=== PATIENT | female | born 1955 | race Caucasian/White ===

== ENCOUNTER → 2019-03-17 14:47 | Outpatient (CLI) | payer MEDICARE, OTHER, SELFPAY | PROVIDERS: PCP Registered Nurse; Visit Provider Registered Nurse | DX: M85.88 Other specified disorders of bone density and structure, other site (principal); Z78.0 Asymptomatic menopausal state; Z82.62 Family history of osteoporosis; Z87.891 Personal history of nicotine dependence | CPT/HCPCS: 77080 ==

== ENCOUNTER → 2019-06-15 17:25 | Outpatient (CLI) | payer MEDICARE, OTHER, SELFPAY ==
--- NOTE | 2019-06-15 | DI.MG.S_ITS ---
BILATERAL DIGITAL SCREENING MAMMOGRAM 3D/2D WITH CAD: 06/15/2019 CLINICAL: Routine screening. Family history of breast cancer. Comparison is made to exams dated: 12/31/2017 mammogram, 03/15/2015 mammogram, 03/08/2015 mammogram, and 07/19/2008 mammogram - [facility]. The tissue of both breasts is heterogeneously dense. This may lower the sensitivity of mammography. Current study was also evaluated with a Computer Aided Detection (CAD) system. No significant masses, calcifications, or other findings are seen in either breast. There has been no significant interval change. IMPRESSION: NEGATIVE There is no mammographic evidence of malignancy. A 1 year screening mammogram is recommended. This exam was interpreted at Station ID: [id number]. NOTE: For mammograms, a report in lay terms will be sent to the patient. Approximately 15% of breast malignancies will not be visualized mammographically. In the management of a palpable breast mass, a negative mammogram must not discourage biopsy of a clinically suspicious lesion. Electronically Signed By: Case real/ariadne:06/16/2019 08:14:34 letter sent: Normal Exam ACR BI-RADS Category 1: Negative [id number]
== END ==
PROVIDERS: PCP Registered Nurse; Visit Provider Registered Nurse
DX: Z12.31 Encounter for screening mammogram for malignant neoplasm of breast (principal); Z80.3 Family history of malignant neoplasm of breast
CPT/HCPCS: 77063; 77067

== ENCOUNTER → 2019-11-23 15:13 | Outpatient (CLI) | payer MEDICARE, OTHER, SELFPAY ==
--- NOTE | 2019-11-23 | DI.RAD.S_ITS ---
PROCEDURE: XR CHEST 2V INDICATIONS: COUGH, RULE OUT PNEUMONIA TECHNIQUE: 2 views of the chest were acquired. COMPARISON: [facility], , CHEST 2 VIEW, 07/14/2011, 14:54. FINDINGS: Surgical changes and devices: None. Lungs and pleura: There is an opacity density in the left mid lung zone. A nodular density seen in the posterior sulcus on the lateral projection. No pleural effusions or pneumothorax. Mediastinum: Mediastinal contours are normal. Heart size is normal. Bones and chest wall: No suspicious bony abnormalities. Soft tissues appear unremarkable. IMPRESSION: 1. An opacity in the left midlung zone, consistent with pneumonia. Recommend followup chest x-ray after adequate treatment to ensure resolution. 2. A small nodular density is noted in the lateral projection within the posterior sulcus. This can be followed on followup chest x-ray at as well. Dictated by: Valeria Nguyen M.D. on 11/23/2019 at 15:32 Approved by: Valeria Nguyen M.D. on 11/23/2019 at 15:39
== END ==
PROVIDERS: PCP Registered Nurse; Visit Provider Registered Nurse
DX: R05 Cough (principal)
CPT/HCPCS: 71046

== ENCOUNTER → 2019-12-01 12:13 | Outpatient (CLI) | payer MEDICARE, OTHER, SELFPAY ==
--- NOTE | 2019-12-01 | DI.RAD.S_ITS ---
PROCEDURE: XR CHEST 2V INDICATIONS: follow up related to recent pneumonia TECHNIQUE: 2 views of the chest were acquired. COMPARISON: [facility], , XR CHEST 2V, 11/23/2019, 15:12. FINDINGS: Surgical changes and devices: None. Lungs and pleura: Lungs are clear. No pleural effusions or pneumothorax. Mediastinum: Mediastinal contours are normal. Heart size is normal. Bones and chest wall: No suspicious bony abnormalities. Soft tissues appear unremarkable. IMPRESSION: No acute disease. Dictated by: Guanako Abdalla M.D. on 12/01/2019 at 14:45 Approved by: Guanako Abdalla M.D. on 12/01/2019 at 14:45
== END ==
PROVIDERS: PCP Registered Nurse; Visit Provider Registered Nurse
DX: J15.9 Unspecified bacterial pneumonia (principal)
CPT/HCPCS: 71046

== ENCOUNTER 2020-05-26 11:25 | Emergency (ER) | payer MEDICARE, OTHER, SELFPAY ==
[2020-05-26] VITALS (11 sets, daily range): BP systolic 145–167; BP diastolic 65–81; PULSE 43–52; RESP 0–29; TEMP 36.3–36.8; O2SAT 98–100; BMI 24.2
--- NOTE | 2020-05-26 11:46 | DI.RAD.S_ITS ---
PROCEDURE: XR CHEST 1V INDICATIONS: chest pain TECHNIQUE: One view of the chest was acquired. COMPARISON: [facility], , CHEST 2 VIEW, 07/14/2011, 14:54. [facility], , XR CHEST 2V, 11/23/2019, 15:12. [facility], CR, XR CHEST 2V, 12/01/2019, 12:13. FINDINGS: Surgical changes and devices: None. Lungs and pleura: An incomplete inspiratory result is noted, causing a crowded appearance to the lung markings. No focal infiltrates are seen. No pneumothorax or significant pleural effusions are seen. Mediastinum: The cardiac contours are within normal limits. The aorta demonstrates calcification and tortuosity. Bones and chest wall: No suspicious bony lesions. Age-appropriate bony degenerative changes are seen. Overlying soft tissues appear unremarkable. IMPRESSION: Limited portable chest examination, without a significant cardiopulmonary abnormality identified. Dictated by: Miguel Goss M.D. on 05/26/2020 at 11:09 Approved by: Miguel Goss M.D. on 05/26/2020 at 11:11
--- NOTE | 2020-05-26 11:57 | PC.NURSE ---
Patient reports heartburn pain for about three days. Took omeprazole and tums last night. Patient has noticed nausea and some dizziness associated with symptoms. Patient has had dizziness with standing intermittently. Patient had a headache this morning with pounding in her chest which is now resolved.
[2020-05-26 12:10] LABS: Add Manual Diff / Slide Review NO; Basophils Absolute Auto 100 /uL (0-100); Eosinophils Absolute Auto 200 /uL (0-450); Eosinophils Percent Auto 2.9 % (2-4); Hematocrit 41.5 % (36-46); Hemoglobin 13.8 g/dL (12.0-16.0); Lymphocytes Absolute Auto 2200 /uL (1100-4500); Mean Corpuscular HGB Conc 33.2 % (30-36); Mean Corpuscular Hemoglobin 30.6 PG (26-34); Mean Corpuscular Volume 92.4 fL (80-100); Monocytes Absolute Auto 800 /uL (0-900); Monocytes Percent Auto 9.8 % (3-14); Neutrophils Absolute Auto 4500 /uL (1500-7000); Neutrophils Percent Auto 58.3 % (50-75); Platelet Count 180 X10^3/uL (150-400); Red Blood Cell Count 4.49 X10^6/uL (4.0-5.2); Red Cell Distribution Width 13.6 % (11.6-14.8); White Blood Cell Count 7.7 X10^3/uL (4.5-11.0)
--- NOTE | 2020-05-26 12:17 | ED_ITS ---
HPI - Chest Pain General Chief Complaint: Chest Pain Stated Complaint: Heartburn for 3 days Time Seen by Provider: 05/26/20 12:03 Source: patient Mode of arrival: Ambulatory History of Present Illness HPI narrative: The patient has epigastric pain for 3 days. The pain tends to radiate under her sternum. She has no radiation elsewhere the chest, or to her back. She has no associated dyspnea, dizziness or weakness. She has no cardiac history other her mother has a history of CAD. She also has no history of hiatal hernia or GERD, but that is working diagnosis between her and her PCM. Due to the ongoing discomfort for 3 days, her PCM asked her to come here to be checked. She has no history of hypertension, diabetes or hyperlipidemia. She is a nonsmoker. She has mild epigastric pain at this time, she is not in distress. Related Data Previous Rx's Medication Instructions Recorded aripiprazole [Abilify] 5 mg PO QDAY #90 tab 11/13/16 estradiol 1 mg PO QDAY #90 tab 11/13/16 progesterone micronized 100 mg PO QDAY #90 cap 11/13/16 venlafaxine 37.5 mg PO QDAY #90 tab 11/13/16 pantoprazole [Protonix] 40 mg PO BEDTIME 28 Days tab 05/26/20 Allergies Allergy/AdvReac Type Severity Reaction Status Date / Time No Known Drug Allergies Allergy Verified 05/26/20 12:33 Review of Systems Review of Systems ROS Unobtainable: All systems reviewed & are unremarkable except as noted in HPI and below Constitutional Constitutional: Denies chills, Denies fever(s) and Denies weakness ENT Ears, Nose, Mouth, and Throat: Denies change in voice, Denies neck pain and Denies sore throat Cardiovascular Cardiovascular: Denies chest pain, Denies irregular heart rhythm, Denies lightheadedness, Denies palpitations, Denies dyspnea and Denies orthopnea Respiratory Respiratory: Denies cough, Denies dyspnea and Denies wheezing Gastrointestinal Comments: Epigastric pain, see HPI. No nausea. No distention. No diarrhea. Musculoskeletal Musculoskeletal: Denies back pain, Denies neck pain and Denies numbness Integumentary/Breasts Skin/Breast: Denies pruritus, Denies erythema, Denies rash and Denies wounds Neurologic Neurologic: Denies numbness and Denies weakness Psychiatric Psychiatric: Denies anxiety Endocrine Endocrine: Denies palpitations Allergic/Immunologic Allergic/Immunologic: Denies wheezing Patient History Medical History (Updated 05/26/20 @ 14:24 by Filemon Salguero MD) Depression (Acute) Surgical History (Updated 03/08/18 @ 06:21 by Conversion Provider) Status post tonsillectomy and adenoidectomy Social History Smoking Status: Former smoker Smoking Status: Former smoker alcohol intake frequency: a few times a week Substance Use Type: does not use Exam Initial Vital Signs Initial Vital Signs: Vital Signs Pulse Rate 52 L 05/26/20 11:46 Pulse Oximetry 98 05/26/20 11:46 Const General: cooperative and well developed Nutritional Appearance: well nourished HENMT Head: normocephalic and atraumatic Mouth: oral mucosae normal Throat: posterior oropharynx normal Eyes Conjunctivae: conjunctivae normal Sclera: sclerae normal Pupils: PERRL EOM: EOM intact bilaterally Neck Neck: No lymphadenopathy and No JVD Thyroid: thyroid normal Chest Chest: normal palpation of entire chest wall Resp Effort & Inspection: normal respiratory effort and able to speak in complete sentences Auscultation: clear to auscultation bilaterally, no rales, no rhonchi and no whe ezes Cardio Rate: regular rate Rhythm: regular rhythm Heart Sounds: S1 normal, S2 normal, no click, no gallops, no murmurs and no rubs Pulses: normal peripheral pulses GI Inspection: non-distended Palpation: soft, no hepatosplenomegaly, No guarding, No pulsatile mass and No tender Auscultation: normal bowel sounds Back/Spine/Pelvis Back: normal to inspection and No back tenderness Skin General: no rashes or lesions noted, No crusts, No jaundice and No petechiae Neuro General: patient alert, patient oriented x3, gait normal and no focal motor deficits Speech: speech normal Extrem General: full ROM, no pedal edema and no calf tenderness Psych Appearance: well kempt Mental Status: mental status grossly normal Speech and Movement: agitated Course Course Course Narrative: The patient is not totally asymptomatic but is improved after receiving Protonix and the GI cocktail. Her cardiac evaluation is benign. She is discharged on Protonix, she is advised to follow-up with her doctor as planned. Orders Ordered: ED Orders 05/26/20 11:46 XR chest 1V Stat EKG-12 Lead Stat 05/26/20 12:05 Complete Blood Count AUTO DIFF Stat Comprehensive Metabolic Panel Stat Lipase Stat Partial Thromboplastin Time Stat Prothrombin Time INR Stat Troponin & CK Cardiac Panel Stat Discontinued Medications Al Hydrox/Mg Hydrox/Simethicone 20 ml/ Lidocaine HCl 15 ml 0 ml PO NOW ONE Stop: 05/26/20 12:18 Last Admin: 05/26/20 12:33 Dose: 30 ml Documented by: FATOU Pantoprazole Sodium (Protonix) 40 mg IV NOW ONE Stop: 05/26/20 12:17 Last Admin: 05/26/20 12:32 Dose: 40 mg Documented by: FATOU Vital Signs Vital signs: Vital Signs - 8 hr 05/26/20 11:46 05/26/20 11:47 05/26/20 11:54 Temperature 97.3 F L Pulse Rate 52 L 49 L 50 L Respiratory Rate 16 Blood Pressure 167/81 H 167/81 H Pulse Oximetry 98 99 99 05/26/20 12:00 05/26/20 12:30 05/26/20 13:00 Temperature Pulse Rate 44 L 43 L 46 L Respiratory Rate 6 L 29 H 26 H Blood Pressure Pulse Oximetry 99 99 98 05/26/20 13:30 05/26/20 14:00 05/26/20 14:06 Temperature Pulse Rate 46 L 46 L 45 L Respiratory Rate 0 L 28 H 26 H Blood Pressure 146/67 H Pulse Oximetry 99 99 99 05/26/20 14:20 05/26/20 14:36 Temperature 98.2 F Pulse Rate 46 L 49 L Respiratory Rate 11 L 16 Blood Pressure 145/65 H 145/68 H Pulse Oximetry 99 100 MDM - Chest Pain Lab Data Result diagrams: 05/26/20 12:05 05/26/20 12:05 Labs: Lab Results 05/26/20 05/26/20 05/26/20 Range/Units 12:05 12:05 12:05 WBC 7.7 (4.5-11.0) X10^3/uL RBC 4.49 (4.0-5.2) X10^6/uL Hgb 13.8 (12.0-16.0) g/dL Hct 41.5 (36-46) % MCV 92.4 (80-100) fL MCH 30.6 (26-34) PG MCHC 33.2 (30-36) % RDW 13.6 (11.6-14.8) % Plt Count 180 (150-400) X10^3/uL Neut % (Auto) 58.3 (50-75) % Lymph % (Auto) 28.0 (25-40) % Motley % (Auto) 9.8 (3-14) % Eos % (Auto) 2.9 (2-4) % Baso % (Auto) 1.0 (0-2) % Neut # (Auto) 4500 (3152-8067) /uL Lymph # (Auto) 2200 (5277-5156) /uL Motley # (Auto) 800 (0-900) /uL Eos # (Auto) 200 (0-450) /uL Baso # (Auto) 100 (0-100) /uL PT 10.3 (10.1-12.7) SECONDS INR 0.9 (0.9-1.3) APTT 33 (26.4-36.2) SECONDS Sodium 138 (137-145) mmol/L Potassium 4.2 (3.4-5.1) mmol/L Chloride 103 (98-107) mmol/L Carbon Dioxide 31 (22-32) mmol/L BUN 17 (7-17) mg/dL Creatinine 0.79 (0.52-1.04) mg/dL Estimated GFR > 60.0 (>60) mL/min BUN/Creatinine Ratio 21.5 (6-22) Glucose 92 (80-110) mg/dL Calcium 10.9 H (8.4-10.2) mg/dL Total Bilirubin 0.3 (0.2-1.3) mg/dL AST 27 (14-36) IU/L ALT 20 (<35) IU/L Alkaline Phosphatase 72 (38-126) U/L Total Creatine Kinase 46 (30-135) U/L CK-MB (CK-2) TNP CK-MB (CK-2) Rel Index TNP Troponin I < 0.012 (0.01-0.034) ng/mL Total Protein 6.7 (6.3-8.2) g/dL Albumin 3.9 (3.5-5.0) g/dL Globulin 2.8 (1.7-4.1) g/dL Albumin/Globulin Ratio 1.4 (1.0-2.8) Lipase 143 (23-300) U/L Imaging Data Chest x-ray: Radiologist's Impression: 13 Diagnostics DATE TYPE STATUS REF RANGE/AUTHOR Hx 05/26/20 11:46 Miguel Goss 12/01/19 00:00 RmGuanako 11/23/19 00:00 Linda Nguyenmolly 06/15/19 00:00 Call,Case 03/17/19 00:00 Socorro Hernandez, F0 1955 [facility] ER, Main ED 162.56cm 63.957kg BMI: 24.2kg/m? Chest Pain Search Chart No Data to Display ONSET Today 14:36 Socorro Hernandez F 1955 [place] [address] XRay Report Signed Patient: Socorro Hernandez GMR#: [id number] : 1955cct:[id number] Age/Sex: 65 / FDate of Service: 05/26/20 Loc: ED Accession Number: [id number] Procedure: XR chest 1V Ordering Provider: Filemon Salguero MD PROCEDURE: XR CHEST 1V INDICATIONS: chest pain TECHNIQUE: One view of the chest was acquired. COMPARISON: [facility], , CHEST 2 VIEW, 07/14/2011, 14:54. [facility], , XR CHEST 2V, 11/23/2019, 15:12. [facility], CR, XR CHEST 2V, 12/01/2019, 12:13. FINDINGS: Surgical changes and devices: None. Lungs and pleura: An incomplete inspiratory result is noted, causing a crowded appearance to the lung markings. No focal infiltrates are seen. No pneumothorax or significant pleural effusions are seen. Mediastinum: The cardiac contours are within normal limits. The aorta demonstr ates calcification and tortuosity. Bones and chest wall: No suspicious bony lesions. Age-appropriate bony degenerative changes are seen. Overlying soft tissues appear unremarkable. IMPRESSION: Limited portable chest examination, without a significant cardiopulmonary abnormality identified. Dictated by: Miguel Goss M.D. on 05/26/2020 at 11:09 Approved by: Miguel Goss M.D. on 05/26/2020 at 11:11 ECG Data Attestation: I personally reviewed and interpreted this ECG as follows: (Sinus bradycardia rate 45 beats per minute. First-degree AV block. LAE. LAFB. No acute findings.) Discharge Plan Departure Patient Disposition: Home Clinical Impression: Abdominal pain, acute, epigastric Discharge Date/Time: 05/26/20 14:41 Instructions: DI for Abdominal Pain-Adult Activity Restrictions/Additional Instructions: Protonix [address] [place] diet, drink plenty of water. Call your doctor for a follow-up appointment. Return the ER if symptoms escalate. Prescriptions: New pantoprazole [Protonix] 40 mg tablet,delayed release (DR/EC) 40 mg PO BEDTIME 28 Days RF: 0 No Action estradiol 1 MG tablet 1 mg PO QDAY Qty: 90 RF: 3 venlafaxine 37.5 MG tablet 37.5 mg PO QDAY Qty: 90 RF: 3 progesterone micronized 100 MG capsule 100 mg PO QDAY Qty: 90 RF: 3 aripiprazole [Abilify] 5 MG tablet 5 mg PO QDAY Qty: 90 RF: 3 Referrals: Carlos Ariza ARNP [Primary Care Provider] -
[2020-05-26 12:18] LABS: INR 0.9 (0.9-1.3); Prothrombin Time 10.3 SECONDS (10.1-12.7)
[2020-05-26 12:21] LABS: PTT Partial Thromboplastin Tim 33 SECONDS (26.4-36.2)
[2020-05-26 12:22] LABS: Alanine Aminotransferase 20 IU/L (<35); Albumin 3.9 g/dL (3.5-5.0); Albumin Globulin Ratio 1.4 (1.0-2.8); Alkaline Phosphatase 72 U/L (38-126); Aspartate Aminotransferase 27 IU/L (14-36); BUN Creatinine Ratio 21.5 (6-22); Bilirubin Total 0.3 mg/dL (0.2-1.3); Blood Urea Nitrogen 17 mg/dL (7-17); Calcium 10.9 mg/dL (8.4-10.2); Carbon Dioxide 31 mmol/L (22-32); Chloride 103 mmol/L (98-107); Creatine Kinase 46 U/L (30-135); Estimated Glomerular Filt Rate > 60.0 mL/min (>60); Globulin 2.8 g/dL (1.7-4.1); Glucose 92 mg/dL (80-110); HEMOLYSIS < 15 (0-50); Lipase 143 U/L (23-300); Potassium 4.2 mmol/L (3.4-5.1); Sodium 138 mmol/L (137-145); Total Protein 6.7 g/dL (6.3-8.2)
[2020-05-26] MEDS: PANTOPRAZOLE 40 MG VIAL IV (12:32)
[2020-05-26] MEDS: MAG HYDROX/ALUMINUM/SIMETH SUS 20 ML, LIDOCAINE VISCOUS 2% 15 ML PO (12:33)
[2020-05-26 12:34] LABS: Troponin I < 0.012 ng/mL (0.01-0.034)
== END 2020-05-26 14:41 | disposition home or self-care (01) ==
PROVIDERS: Emergency Provider Emergency Medicine; PCP Registered Nurse
DX: R10.13 Epigastric pain (principal); R07.9 Chest pain, unspecified; R00.1 Bradycardia, unspecified
CPT/HCPCS: 36415; 71045; 80053; 82550; 83690; 84484; 85025; 85610; 85730; 93005; 96374; 99284; C9113

== ENCOUNTER → 2020-10-04 16:12 | Outpatient (CLI) | payer MEDICARE, OTHER, SELFPAY ==
--- NOTE | 2020-10-04 16:15 | DI.MG.S_ITS ---
BILATERAL DIGITAL SCREENING MAMMOGRAM 3D/2D WITH CAD: 10/04/2020 CLINICAL: Routine screening. Family history of breast cancer. Comparison is made to exams dated: 06/15/2019 mammogram, 12/31/2017 mammogram, and 03/08/2015 mammogram - [facility]. The tissue of both breasts is heterogeneously dense. This may lower the sensitivity of mammography. Current study was also evaluated with a Computer Aided Detection (CAD) system. There is an asymmetry in the left breast anterior depth superior region seen on the mediolateral oblique view only. No other significant masses, calcifications, or other findings are seen in either breast. IMPRESSION: INCOMPLETE: NEEDS ADDITIONAL IMAGING EVALUATION The asymmetry in the left breast is indeterminate. Additional views with possible ultrasound are recommended. This exam was interpreted at Station ID: [id number]. NOTE: For mammograms, a report in lay terms will be sent to the patient. Approximately 15% of breast malignancies will not be visualized mammographically. In the management of a palpable breast mass, a negative mammogram must not discourage biopsy of a clinically suspicious lesion. Electronically Signed By: Humera villegas/ariadne:10/08/2020 10:35:19 letter sent: Additional Imaging Needed ACR BI-RADS Category 0: Incomplete 3340F
== END ==
PROVIDERS: PCP Registered Nurse; Referring Provider Registered Nurse; Visit Provider Registered Nurse
DX: Z12.31 Encounter for screening mammogram for malignant neoplasm of breast (principal); Z80.3 Family history of malignant neoplasm of breast
CPT/HCPCS: 77063; 77067

== ENCOUNTER → 2020-10-30 12:31 | Outpatient (CLI) | payer MEDICARE, OTHER, SELFPAY ==
--- NOTE | 2020-10-30 | DI.MG.S_ITS ---
UNILATERAL LEFT DIGITAL DIAGNOSTIC MAMMOGRAM 3D/2D WITH ADDITIONAL VIEWS: 10/30/2020 CLINICAL: Additional evaluation requested from prior study. Comparison is made to exams dated: 10/04/2020 mammogram, 06/15/2019 mammogram, and 12/31/2017 mammogram - [facility]. The tissue of left breast is heterogeneously dense. This may lower the sensitivity of mammography. There is a 0.8 cm oval equal density asymmetry with a circumscribed margin in the left breast anterior depth superior region seen on the mediolateral oblique view only. This is more prominent and increased in size. No other significant masses or calcifications are seen in the breast. IMPRESSION: INCOMPLETE: NEEDS ADDITIONAL IMAGING EVALUATION The 0.8 cm oval equal density asymmetry in the left breast is indeterminate. An ultrasound is recommended. This was performed immediately following this exam. This exam was interpreted at Station ID: [id number]. NOTE: For mammograms, a report in lay terms will be sent to the patient. Approximately 15% of breast malignancies will not be visualized mammographically. In the management of a palpable breast mass, a negative mammogram must not discourage biopsy of a clinically suspicious lesion. Electronically Signed By: Karmen downs/:10/30/2020 13:12:24 ACR BI-RADS Category 0: Incomplete 3340F
--- NOTE | 2020-10-30 | DI.US.S_ITS ---
ULTRASOUND OF LEFT BREAST: 10/30/2020 CLINICAL: Patient returns today to evaluate a focal asymmetry in the left breast. Comparison is made to exams dated: 10/30/2020 mammogram, 10/04/2020 mammogram, 06/15/2019 mammogram, 12/31/2017 mammogram, 03/08/2015 mammogram, and 08/02/2008 [facility]. Color flow ultrasound of the left breast was performed. Fonseca scale images of the real-time examination were reviewed. There is a 0.6 cm x 0.3 cm x 0.5 cm oval cyst in the left breast at 12 o'clock anterior depth 1 cm from the nipple. This oval cyst is hypoechoic, minimal internal echos, with a well-defined boundary and posterior acoustic enhancement. This correlates with mammography findings. Color flow imaging demonstrates that there is no vascularity present. IMPRESSION: PROBABLY BENIGN The 0.6 cm cyst in the left breast is consistent with a complicated cyst and is probably benign. A follow-up ultrasound in 6 months is recommended. Findings and recommendations were conveyed to the patient at time of exam. This exam was interpreted at Station ID: [id number]. Electronically Signed By: Karmen downs/:10/30/2020 14:32:34 letter sent: Followup Recommended Ultrasound BI-RADS: 3 Probably benign
== END ==
PROVIDERS: PCP Registered Nurse; Referring Provider Registered Nurse; Visit Provider Registered Nurse
DX: R92.8 Other abnormal and inconclusive findings on diagnostic imaging of breast (principal); N60.02 Solitary cyst of left breast
CPT/HCPCS: 76642; 77065; G0279

== ENCOUNTER → 2021-05-01 14:14 | Outpatient (CLI) | payer MEDICARE, OTHER, SELFPAY ==
--- NOTE | 2021-05-01 | DI.US.S_ITS ---
LIMITED ULTRASOUND OF LEFT BREAST: 05/01/2021 CLINICAL: 6 month follow-up of cysts. Comparison is made to exams dated: 10/30/2020 ultrasound, 10/30/2020 mammogram, 10/04/2020 mammogram, and 06/15/2019 mammogram - [facility]. Color flow ultrasound of the left breast was performed. Fonseca scale images of the real-time examination were reviewed. There is a 0.6 cm x 0.3 cm x 0.5 cm oval cyst in the left breast at 12 o'clock anterior depth 1 cm from the nipple. This oval cyst is hypoechoic with a well-defined boundary and posterior acoustic enhancement. This abnormality is not significantly changed. IMPRESSION: PROBABLY BENIGN The 0.6 cm x 0.3 cm x 0.5 cm oval cyst in the left breast is consistent with a complicated cyst and is probably benign. A follow-up mammogram and an ultrasound in 6 months is recommended to demonstrate stability. This exam was interpreted at Station ID: [id number]. Electronically Signed By: Guevara boggs/ariadne:05/01/2021 15:40:22 letter sent: Followup Recommended Ultrasound BI-RADS: 3 Probably benign
== END ==
PROVIDERS: PCP Registered Nurse; Referring Provider Registered Nurse; Visit Provider Registered Nurse
DX: R92.8 Other abnormal and inconclusive findings on diagnostic imaging of breast (principal); N60.02 Solitary cyst of left breast
CPT/HCPCS: 76642

== ENCOUNTER → 2022-02-25 13:03 | Outpatient (CLI) | payer MEDICARE, OTHER, SELFPAY ==
--- NOTE | 2022-02-25 13:05 | DI.MG.S_ITS ---
BILATERAL DIGITAL DIAGNOSTIC MAMMOGRAM 3D/2D SHORT-TERM FOLLOW-UP: 02/25/2022 CLINICAL: Left 6 month follow-up of cysts, due for bilateral. Comparison is made to exams dated: 10/30/2020 mammogram, 10/04/2020 mammogram, and 06/15/2019 mammogram - [facility]. The tissue of both breasts is heterogeneously dense. This may lower the sensitivity of mammography. There is a stable 0.8 cm oval equal density asymmetry with a circumscribed margin in the left breast anterior depth superior region seen on the mediolateral oblique view only. No other significant masses, calcifications, or other findings are seen in either breast. IMPRESSION: INCOMPLETE: NEEDS ADDITIONAL IMAGING EVALUATION The stable 0.8 cm oval equal density asymmetry in the left breast is indeterminate. An ultrasound is recommended and is scheduled to follow this exam. This exam was interpreted at Station ID: [id number]. NOTE: For mammograms, a report in lay terms will be sent to the patient. Approximately 15% of breast malignancies will not be visualized mammographically. In the management of a palpable breast mass, a negative mammogram must not discourage biopsy of a clinically suspicious lesion. Electronically Signed By: Naresh Briseno M.D. jr/:02/25/2022 13:50:11 Entry: aa - 02/26/2022 11:19:46 ACR BI-RADS Category 0: Incomplete 3340F
--- NOTE | 2022-02-25 13:06 | DI.US.S_ITS ---
LIMITED ULTRASOUND OF LEFT BREAST: 02/25/2022 CLINICAL: 6 month follow-up of cysts. Comparison is made to exams dated: 05/01/2021 ultrasound, 10/30/2020 ultrasound, and 10/30/2020 mammogram - [facility]. Color flow and real-time ultrasound of the left breast 12-1 o'clock region were performed. Fonseca scale images of the real-time examination were reviewed. There is a stable benign 0.6 cm x 0.3 cm x 0.5 cm oval cyst in the left breast at 12 o'clock anterior depth 1 cm from the nipple. This oval cyst is hypoechoic with a well-defined boundary and posterior acoustic enhancement. IMPRESSION: BENIGN There is no sonographic evidence of malignancy. The stable 0.6 cm x 0.3 cm x 0.5 cm oval cyst in the left breast is consistent with a complicated cyst and is benign. A 1 year screening mammogram is recommended. This exam was interpreted at Station ID: [id number]. Electronically Signed By: Naresh Briseno M.D., jr/ariadne:02/25/2022 14:34:47 letter sent: Normal Exam Ultrasound BI-RADS: 2 Benign
== END ==
PROVIDERS: PCP Registered Nurse; Referring Provider Registered Nurse; Visit Provider Registered Nurse
DX: R92.8 Other abnormal and inconclusive findings on diagnostic imaging of breast (principal); N60.02 Solitary cyst of left breast
CPT/HCPCS: 76642; 77066; G0279

== ENCOUNTER → 2022-04-29 10:47 | Outpatient (CLI) | payer MEDICARE, OTHER, SELFPAY ==
--- NOTE | 2022-04-29 | DI.RAD.S_ITS ---
PROCEDURE: XR FOOT LT MIN 3V INDICATIONS: LEFT FOOT PAIN TECHNIQUE: 3 views of the foot were acquired. COMPARISON: None. FINDINGS: Bones: No fractures or dislocations. No suspicious bony lesions. Mild metatarsus adductus and hallux valgus. There is severe 1st metatarsophalangeal joint degeneration. Mild degenerative joint disease in multiple intertarsal joints, tarsometatarsal joints, and interphalangeal joints. Calcaneal spurring. Soft tissues: No tibiotalar joint effusion. Achilles tendon appears normal. IMPRESSION: 1. 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 2. Calcaneal spurring. Dictated by: Valeria Nguyen M.D. on 04/29/2022 at 17:35 Approved by: Valeria Nguyen M.D. on 04/29/2022 at 17:36
== END ==
PROVIDERS: PCP Registered Nurse; Referring Provider Podiatrist; Visit Provider Podiatrist
DX: M79.672 Pain in left foot (principal); M19.042 Primary osteoarthritis, left hand; M77.32 Calcaneal spur, left foot
CPT/HCPCS: 73630

== ENCOUNTER → 2023-05-13 09:05 | Outpatient (CLI) | payer MEDICARE, OTHER, SELFPAY ==
--- NOTE | 2023-05-13 | DI.MG.S_ITS ---
BILATERAL DIGITAL SCREENING MAMMOGRAM 3D/2D WITH CAD: 05/13/2023 CLINICAL: Routine screening. Family history of breast cancer. Comparison is made to exams dated: 02/25/2022 mammogram, 10/30/2020 mammogram, 10/04/2020 mammogram, and 06/15/2019 mammogram - [facility]. Both breasts are heterogeneously dense, which may obscure small masses (category c / 51-75% glandular tissue). Current study was also evaluated with a Computer Aided Detection (CAD) system. No significant masses, calcifications, or other findings are seen in either breast. There has been no significant interval change. IMPRESSION: NEGATIVE There is no mammographic evidence of malignancy. A 1 year screening mammogram is recommended. Based on the Tyrer Cuzick model (a risk assessment model) the patient's lifetime risk is 13.0% and her 10 year risk is 8.4%. According to the ACR, ACS, and NCCN guidelines, an annual breast MRI exam along with mammogram is recommended if the patient's lifetime risk is 20% or greater. This exam was interpreted at Station ID: [id number]. NOTE: For mammograms, a report in lay terms will be sent to the patient. Approximately 15% of breast malignancies will not be visualized mammographically. In the management of a palpable breast mass, a negative mammogram must not discourage biopsy of a clinically suspicious lesion. Electronically Signed By: Chevy posey/ariadne:05/13/2023 10:02:49 letter sent: Normal Exam ACR BI-RADS Category 1: Negative 3341F
== END ==
PROVIDERS: PCP Registered Nurse; Referring Provider Registered Nurse; Visit Provider Registered Nurse
DX: Z12.31 Encounter for screening mammogram for malignant neoplasm of breast (principal); Z80.3 Family history of malignant neoplasm of breast
CPT/HCPCS: 77063; 77067

== ENCOUNTER → 2023-08-05 08:10 | Outpatient (CLI) | payer MEDICARE, OTHER, SELFPAY ==
--- NOTE | 2023-08-05 | DI.US.S_ITS ---
PROCEDURE: US EXTREMITY NONVASC UPPER LT INDICATIONS: Neoplasm of unspecified behavior of bone, soft tissue TECHNIQUE: Real-time scanning was performed of the left posterior proximal upper arm, with image documentation. COMPARISON: None. FINDINGS: In the area imaged in the left proximal posterior upper arm, normal soft tissue and musculature is identified. No solid mass or fluid collection seen. IMPRESSION: No mass identified in the area of clinical concern. Dictated by: Riki Mcdowell M.D. on 08/05/2023 at 9:48 Approved by: Riki Mcdowell M.D. on 08/05/2023 at 9:49
== END ==
PROVIDERS: PCP Registered Nurse; Referring Provider Registered Nurse; Visit Provider Registered Nurse
DX: D49.2 Neoplasm of unspecified behavior of bone, soft tissue, and skin (principal)
CPT/HCPCS: 76882

== ENCOUNTER → 2023-08-27 16:09 | Outpatient (CLI) | payer MEDICARE, OTHER, SELFPAY ==
--- NOTE | 2023-08-27 16:19 | DI.RAD.S_ITS ---
PROCEDURE: XR FOOT LT MIN 3V INDICATIONS: Pain L foot TECHNIQUE: 3 views of the foot were acquired. COMPARISON: [facility], , XR FOOT LT MIN 3V, 04/29/2022, 10:36. FINDINGS: Bones: No fractures or dislocations. No suspicious bony lesions. Hallux valgus deformity with severe 1st MTP arthritic narrowing. Subchondral sclerosis is present with small periarticular osteophytes. Otherwise, scattered IP narrowing is present. Soft tissues: No tibiotalar joint effusion. Achilles tendon appears normal. IMPRESSION: Hallux valgus deformity with prominent 1st MTP arthritic change Dictated by: Lizet Suarez M.D. on 08/27/2023 at 16:52 Approved by: Lizet Suarez M.D. on 08/27/2023 at 16:53
== END ==
PROVIDERS: PCP Registered Nurse; Referring Provider Podiatrist; Visit Provider Podiatrist
DX: M79.672 Pain in left foot (principal); M20.12 Hallux valgus (acquired), left foot
CPT/HCPCS: 73630

== ENCOUNTER → 2024-01-03 07:50 | Outpatient (CLI) | payer MEDICARE, OTHER, SELFPAY ==
--- NOTE | 2024-01-03 07:52 | DI.ECHO.S_ITS ---
[facility] +---------+ : : [address] : : : : [id number] : : : : Phone: [phone]---------+ Echocardiogram Report + + :Name: SPIKE WILLIS Study Date: 01/03/2024 Height: 64 in : :[facility] ReadingLocation: Weight: 157 lb : : Gender: Female BSA: 1.8 m2 : :: 1955 Age: 68 yrs BP: 108/66 mmHg: :Reason For Study: CHEST PAIN : :Ordering Physician: ANDRES, : :YUMIKO Doll Performed By: Leila Murphy : :Referring: YUMIKO SHERMAN : + + Interpretation Summary The ejection fraction is estimated to be 65-70%. Diastolic parameters suggest probable normal left ventricular diastolic function and normal filling pressures. The right ventricle is normal in size and function. There is mild tricuspid regurgitation. Pulmonary artery pressures cannot be estimated because of the lack of a measurable TR jet velocity but the IVC suggests a CVP of around 3 mmHg. Compared to the prior study dated 03/18/2016, no significant change. Procedure: A two-dimensional transthoracic echocardiogram with color flow and Doppler was performed. The study quality was technically adequate. Comparison is made with the echocardiogram of 03/18/2016. The patient was in sinus bradycardia with heart rates between 43-51 bpm during the exam. Left Ventricle: The left ventricle is normal in size and wall thickness. The ejection fraction is estimated to be 65-70%. Diastolic parameters suggest probable normal left ventricular diastolic function and normal filling pressures. Right Ventricle: The right ventricle is normal in size and function. Atria: The left atrial size is normal. Right atrial size is normal. There is no Doppler evidence for an interatrial shunt. Mitral Valve: The mitral valve is normal in structure and function. There is trace mitral regurgitation. Aortic Valve: The aortic valve is trileaflet. The aortic valve opens well. There is no aortic valve stenosis. No aortic regurgitation is present. Tricuspid Valve: The tricuspid valve is normal in structure and function. There is mild tricuspid regurgitation. Pulmonary artery pressures cannot be estimated because of the lack of a measurable TR jet velocity but the IVC suggests a CVP of around 3 mmHg. Pulmonic Valve: The pulmonic valve leaflets are thin and pliable; valve motion is normal. There is mild pulmonic regurgitation. Great Vessels: The aortic root is normal size. The dimensions of the ascending aorta are normal. The IVC is of normal diameter and collapses greater than 50% with a sniff. This suggests a low right atrial pressure of 3 mm Hg. Pericardium/ Pleura There is no pericardial effusion. There is no pleural effusion. MMode/2D Measurements & Calculations LVIDd: 4.3 cm LVOT diam: 2.0 cm LVIDs: 2.5 cm Ao root diam: 2.8 cm FS: 41.3 % asc Aorta Diam: 3.2 cm IVSd: 0.92 cm Ao Arch Diam (Prox Trans): 2.1 cm LVPWd: 0.78 cm LV bacon. diameter/BSA (cm/m^2): 2.4 LV sys. diameter/BSA (cm/m^2): 1.4 LA A2 area: 16.4 cm2 RA long axis: 4.7 cm LA A4 area: 12.0 cm2 RA area: 13.2 cm2 LA length (vol): 4.4 cm RA vol: 31.2 ml LA vol: 37.6 ml RA : 17.7 ml/m2 LA vol index: 21.3 ml/m2 IVC diam: 1.8 cm RVD1 (basal): 3.6 cm RVD2 (mid): 2.6 cm TAPSE: 2.1 cm Doppler Measurements & Calculations Ao V2 max: 148.1 cm/sec LVOT Max Franklyn: 138.9 cm/sec Ao V2 mean: 99.1 cm/sec LV V1 max P.7 mmHg Ao max P.8 mmHg LV V1 VTI: 30.7 cm Ao mean P.6 mmHg DOMINIQUE(I,D): 2.8 cm2 Ao V2 VTI: 33.2 cm DOMINIQUE(V,D): 2.9 cm2 sev ratio: 0.92 DOMINIQUE indexed to BSA (cm^2/m^2): 1.6 MV E max franklyn: 49.6 cm/sec TR max franklyn: 188.2 cm/sec MV A max franklyn: 60.7 cm/sec TR max P.2 mmHg MV E/A: 0.82 PA V2 max: 94.7 cm/sec Med Peak E' Franklyn: 5.1 cm/sec PA V2 mean: 63.6 cm/sec E/E' med: 9.8 PA mean P.8 mmHg Lat Peak E' Franklyn: 7.3 cm/sec PA pr(Accel): 32.8 mmHg E/E' lat: 6.8 E/e' average: 8.3 MV dec time: 0.26 sec [facility] 93.5 ml Reading Physician:12:28 PM
--- NOTE | 2024-01-03 22:04 | DI.NM.S_ITS ---
DATE OF SERVICE: 01/03/2024 PROCEDURE: Exercise treadmill stress and rest myocardial perfusion imaging study with gating to assess ejection fraction and regional wall motion. ORDERING PHYSICIAN: Yumiko Sherman M.D. INDICATIONS: The patient is a 68-year-old female with atypical chest discomfort and an abnormal ECG. CARDIAC STRESS: The patient was able to exercise for a total of 5 minutes and 8 seconds on a standard Raymond protocol, suggesting mildly reduced exercise capacity with an ELEAZAR of +10%, achieving 7.0 METS. She had a normal heart rate and blood pressure response to exercise, achieving a maximum heart rate of 140 BPM (93% of her predicted maximum). She had no chest discomfort or other anginal symptoms. Her resting ECG shows T-wave inversions in the anterolateral leads with some ST depression in the inferior leads. With stress, there were no significant ST-segment shifts but the lateral T-wave inversions normalized. She had rare isolated PACs and PVCs, but no complex ectopy. At 4 minutes and 8 seconds of exercise at a heart rate of 135 BPM, 25.6 millicuries of technetium-99m Myoview was injected and she was imaged 30 minutes later, using a gated SPECT acquisition protocol. Earlier in the day while at rest, she had been injected with 11.5 millicuries of technetium-99m Myoview and was imaged 15 minutes later, again using a gated SPECT acquisition protocol. FINDINGS: 1. Raw data. There is fairly good myocardial tracer uptake with slight breast shadows noted. The lung/heart ratio is normal at 0.28 with a normal TID ratio of 0.80. 2. Quantitated gated SPECT: Post-stress ejection fraction is estimated at 84% without any focal wall motion abnormality and specifically the distal anterior septum appears to have brisk contractility. The resting ejection fraction is 82% with a normal end-diastolic volume of 87 mL. 3. Myocardial perfusion imaging: Post-stress supine images show a fairly normal myocardial perfusion pattern although with a small, subtle defect in the distal anteroseptal region that improves, although does not completely resolve, on the prone images. There are no other perfusion defects. The resting images show an identical perfusion pattern without any improvement in the distal anteroseptal defect,and if anything, it is slightly worse. IMPRESSION: 1. Probable normal myocardial perfusion study. 2. Small, subtle, fixed distal anteroseptal defect that improves but does not completely resolve on prone imaging, suggestive of probable attenuation artifact. A small nontransmural infarction cannot be entirely excluded, although the absence of any wall motion abnormality would mitigate against this. There is no evidence for any myocardial ischemia. 3. Normal left ventricular size and systolic function without any focal abnormality. 4. Mildly impaired exercise capacity without angina. Baseline T-wave abnormalities resolved with exercise. There were occasional isolated PACs and PVCs, but no concerning arrhythmias. Socorro Hernandez - /meli/ doc#: [id number]/job#: [id number] dd: 01/03/2024 15:39:00 dt: 01/03/2024 21:23:00 DICTATING MD/COPIES TO: Filemon Henderson MD; Yumiko Sherman M.D. COPIES MNE: GRACIELA;
== END ==
LOC: ECHO 07:51
PROVIDERS: PCP Registered Nurse; Referring Provider Internal Medicine Cardiovascular Disease; Visit Provider Internal Medicine Cardiovascular Disease
DX: I07.1 Rheumatic tricuspid insufficiency (principal); I37.1 Nonrheumatic pulmonary valve insufficiency; R07.89 Other chest pain; R94.31 Abnormal electrocardiogram [ECG] [EKG]
CPT/HCPCS: 78452; 93017; 93306; A9502

== ENCOUNTER → 2024-01-14 07:25 | Outpatient (CLI) | payer MEDICARE, OTHER, SELFPAY ==
[2024-01-14 08:41] LABS: Add Manual Diff / Slide Review NO; Basophils Absolute Auto 100 /uL (0-100); Eosinophils Absolute Auto 200 /uL (0-450); Eosinophils Percent Auto 3.4 % (2-4); Hematocrit 40.3 % (36-46); Hemoglobin 13.5 g/dL (12.0-16.0); Lymphocytes Absolute Auto 1900 /uL (1100-4500); Lymphocytes Percent Auto 31.1 % (25-40); Mean Corpuscular HGB Conc 33.6 % (30-36); Mean Corpuscular Hemoglobin 30.2 PG (26-34); Monocytes Absolute Auto 500 /uL (0-900); Monocytes Percent Auto 8.8 % (3-14); Neutrophils Absolute Auto 3400 /uL (1500-7000); Neutrophils Percent Auto 55.7 % (50-75); Platelet Count 201 X10^3/uL (150-400); Red Blood Cell Count 4.48 X10^6/uL (4.0-5.2); Red Cell Distribution Width 13.8 % (11.6-14.8); White Blood Cell Count 6.1 X10^3/uL (4.5-11.0)
[2024-01-14 09:01] LABS: Hemoglobin A1C% w Est Avg Glu 5.1 % (4.0-6.0)
[2024-01-14 09:12] LABS: Alanine Aminotransferase 15 IU/L (<35); Albumin 3.8 g/dL (3.5-5.0); Albumin Globulin Ratio 1.3 (1.0-2.8); Alkaline Phosphatase 63 U/L (38-126); Aspartate Aminotransferase 21 IU/L (14-36); BUN Creatinine Ratio 19.4 (6-22); Bilirubin Total 0.4 mg/dL (0.2-1.3); Blood Urea Nitrogen 14 mg/dL (7-17); Calcium 9.7 mg/dL (8.4-10.2); Carbon Dioxide 26 mmol/L (22-32); Chloride 110 mmol/L (98-107); Cholesterol 191 mg/dL (140-199); Estimated Glomerular Filt Rate > 60 mL/min (>60); Globulin 2.9 g/dL (1.7-4.1); Glucose 89 mg/dL (80-110); HDL Cholesterol 59 mg/dL (40-60); HEMOLYSIS < 15 (0-50); LDL Cholesterol Calculated 120 mg/dL (<100); Potassium 4.5 mmol/L (3.4-5.1); Sodium 140 mmol/L (137-145); Total Protein 6.7 g/dL (6.3-8.2); Triglycerides 58 mg/dL (35-150)
[2024-01-14 09:36] LABS: TSH w/ Reflex to FT4 1.09 uIU/mL (0.47-4.68)
== END ==
PROVIDERS: PCP Registered Nurse; Referring Provider Internal Medicine Cardiovascular Disease; Visit Provider Internal Medicine Cardiovascular Disease
DX: R07.9 Chest pain, unspecified (principal); Z13.220 Encounter for screening for lipoid disorders; R94.31 Abnormal electrocardiogram [ECG] [EKG]; R00.2 Palpitations
CPT/HCPCS: 36415; 80053; 80061; 83036; 83735; 84443; 85025

== ENCOUNTER → 2024-02-02 08:23 | Outpatient (CLI) | payer MEDICARE, OTHER, SELFPAY ==
--- NOTE | 2024-02-02 08:25 | DI.RAD.S_ITS ---
PROCEDURE: XR CHEST 2V INDICATIONS: CHRONIC COUGH TECHNIQUE: 2 views of the chest were acquired. COMPARISON: [facility], CR, XR CHEST 1V, 05/26/2020, 11:50. FINDINGS: Surgical changes and devices: None. Lungs and pleura: Lungs are clear. No pleural effusions or pneumothorax. Mediastinum: Mediastinal contours are normal. Heart size is normal. Bones and chest wall: No suspicious bony abnormalities. Soft tissues appear unremarkable. IMPRESSION: No acute cardiopulmonary abnormality is seen. Dictated by: Lizet Suarez M.D. on 02/02/2024 at 13:08 Approved by: Lizet Suarez M.D. on 02/02/2024 at 13:09
== END ==
PROVIDERS: PCP Registered Nurse; Referring Provider Registered Nurse; Visit Provider Registered Nurse
DX: R05.3 Chronic cough (principal)
CPT/HCPCS: 71046

== ENCOUNTER → 2024-06-14 13:49 | Outpatient (CLI) | payer MEDICARE, OTHER, SELFPAY ==
--- NOTE | 2024-06-14 13:50 | DI.MG.S_ITS ---
BILATERAL DIGITAL SCREENING MAMMOGRAM 3D/2D WITH CAD: 06/14/2024 CLINICAL: Routine screening. Family history of breast cancer. Comparison is made to exams dated: 05/13/2023 mammogram, 02/25/2022 mammogram, 10/04/2020 mammogram, and 10/30/2020 mammogram - [facility]. Both breasts are heterogeneously dense, which may obscure small masses (category c / 51-75% glandular tissue). Current study was also evaluated with a Computer Aided Detection (CAD) system. No significant masses, calcifications, or other findings are seen in either breast. There has been no significant interval change. IMPRESSION: NEGATIVE There is no mammographic evidence of malignancy. A 1 year screening mammogram is recommended. Based on the Tyrer Cuzick model (a risk assessment model) the patient's lifetime risk is 12.3% and her 10 year risk is 8.6%. According to the ACR, ACS, and NCCN guidelines, an annual breast MRI exam along with mammogram is recommended if the patient's lifetime risk is 20% or greater. This exam was interpreted at Station ID: [id number]. NOTE: For mammograms, a report in lay terms will be sent to the patient. Approximately 15% of breast malignancies will not be visualized mammographically. In the management of a palpable breast mass, a negative mammogram must not discourage biopsy of a clinically suspicious lesion. Electronically Signed By: Guevara boggs/ariadne:06/14/2024 15:01:09 letter sent: Normal Exam ACR BI-RADS Category 1: Negative 3341F
== END ==
PROVIDERS: PCP Registered Nurse; Referring Provider Registered Nurse; Visit Provider Registered Nurse
DX: Z12.31 Encounter for screening mammogram for malignant neoplasm of breast (principal); Z80.3 Family history of malignant neoplasm of breast; R92.333 Mammographic heterogeneous density, bilateral breasts
CPT/HCPCS: 77063; 77067

== ENCOUNTER → 2024-10-20 11:59 | Outpatient (CLI) | payer MEDICARE, OTHER, SELFPAY ==
--- NOTE | 2024-10-20 12:00 | DI.US.S_ITS ---
PROCEDURE: US THYROID INDICATIONS: Localized swelling, mass and lump, neck TECHNIQUE: Real-time scanning was performed of the thyroid gland, with image documentation. COMPARISON: None. FINDINGS: Thyroid: Right lobe measures 4.0 x 1.1 x 1.2 cm. Left lobe measures 4.0 x 1.1 x 1.3 cm. Isthmus is 0.3 cm thick. Echotexture is homogeneous. There are no discrete thyroid nodules. At the area of concern, there is a morphologically benign appearing right lateral submandibular 0.8 cm short axis node. IMPRESSION: No sonographic abnormality of the thyroid gland. Dictated by: Ish Vallejo M.D. on 10/20/2024 at 16:42 Approved by: Ish Vallejo M.D. on 10/20/2024 at 16:43
== END ==
PROVIDERS: PCP Registered Nurse; Referring Provider Registered Nurse; Visit Provider Registered Nurse
DX: R22.1 Localized swelling, mass and lump, neck (principal)
CPT/HCPCS: 76536

== ENCOUNTER → 2025-05-30 12:44 | Outpatient (CLI) | payer MEDICARE, OTHER, SELFPAY ==
--- NOTE | 2025-05-30 12:47 | DI.US.S_ITS ---
PROCEDURE: US CAROTID DOPPLER BI INDICATIONS: ATHEROSCLEROSIS TECHNIQUE: Color and pulse Doppler interrogation was performed of both carotid systems, with image documentation and velocity measurements. COMPARISON: None. FINDINGS: Stenosis calculations are based on SRU (Society of Radiologists in Ultrasound) criteria. Right side: Brachial blood pressure: 120/72 mm Hg. Common carotid artery peak systolic velocity: 50 cm/sec. Internal carotid artery peak systolic velocity: 71 cm/sec. Internal carotid artery end diastolic velocity: 18 cm/sec. External carotid artery peak systolic velocity: 85 cm/sec. ICA/CCA peak systolic ratio: 1.4 . Fonseca scale imaging description: Normal waveforms. No visible plaque. Percent internal carotid artery stenosis: Less than 50% . Vertebral artery: Flow direction is antegrade. Left side: Brachial blood pressure: 116/66 mm Hg. Common carotid artery peak systolic velocity: 73 cm/sec. Internal carotid artery peak systolic velocity: 67 cm/sec. Internal carotid artery end diastolic velocity: 21 cm/sec. External carotid artery peak systolic velocity: 78 cm/sec. ICA/CCA peak systolic ratio: 0.9 . Fonseca scale imaging description: Normal waveforms. No significant plaque. Percent internal carotid artery stenosis: Less than 50% . Vertebral artery: Flow direction is antegrade. IMPRESSION: 1. In the right carotid artery, there is no hemodynamically significant stenosis based on peak systolic velocity criteria. 2. In the left carotid artery, there is no hemodynamically significant stenosis based on peak systolic velocity criteria. 3. Antegrade vertebral arteries. Dictated by: Karmen Muhammad M.D. on 05/31/2025 at 12:26 Approved by: Karmen Muhammad M.D. on 05/31/2025 at 12:28
== END ==
LOC: US 12:45
PROVIDERS: PCP Registered Nurse; Referring Provider Internal Medicine Cardiovascular Disease; Visit Provider Internal Medicine Cardiovascular Disease
DX: I65.29 Occlusion and stenosis of unspecified carotid artery (principal)
CPT/HCPCS: 93880